=== PATIENT | female | born 1990 | race American Indian/Alaskan Native ===

== ENCOUNTER 2016-07-12 09:08 | Emergency (ER) | payer OTHER ==
--- NOTE | 2016-07-12 10:35 | Emergency Department Report ---
HPI - General Chief Complaint: Sore Throat Time Seen by Provider: 07/12/16 10:24 - HPI HPI: 26-year-old female presents today with intermittent fever, chills 3 days. Positive for neck swelling. Denies past medical history. Denies history of similar symptoms. 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 Denies sore throat, painful swallowing, cough or cold symptoms. Denies trying any medication for symptomatic relief. Denies difficulty in breathing, difficulty in swallowing, nausea, vomiting, chest pain, shortness of breath, abdominal pain. ED Past Medical Hx - Past Medical History Previous Medical History?: No - Surgical History Past Surgical History?: No - Social History Smoking Status: Never Smoker Substance Use Type: Non Opiate Pain - Medications Home Medications: Home Medications Medication Instructions Recorded Confirmed Last Taken Type Ibuprofen [Motrin 600 MG tab] 600 mg PO Q8H PRN #30 tablet 07/12/16 Unknown Rx ED Review of Systems ROS: Stated complaint: LUMP LT SIDE OF NECK/FEVER/CHILLS Other details as noted in HPI Constitutional: chills, fever Eyes: denies: eye pain ENT: denies: ear pain, throat pain, congestion Respiratory: denies: cough, shortness of breath, wheezing Cardiovascular: denies: chest pain, palpitations Endocrine: no symptoms reported Gastrointestinal: denies: abdominal pain, nausea, vomiting Skin: denies: rash Neurological: denies: headache, weakness Physical Exam - Physical Exam Vital Signs: Vital Signs 07/12/16 09:17 Temperature 100.5 F H Pulse Rate 90 Respiratory 20 Rate Blood Pressure 148/94 O2 Sat by Pulse 100 Oximetry Physical Exam: GENERAL: The patient is well-developed and well-nourished. Patient is in NAD. HEAD: Normocephalic. Atraumatic. EYES: PERRL. EARS: External auditory canals and tympanic membranes clear; hearing grossly intact. NOSE: Normal nasal mucosa with no nasal discharge. THROAT: Erythematous, tonsillomegaly with tonsillar exudates. NECK: Positive for bilateral anterior cervical lymphadenopathy. CHEST/LUNGS: Clear to auscultation throughout. HEART/CARDIOVASCULAR: Regular rate and rhythm. ABDOMEN: Abdomen is soft, nontender. No guarding or rebound tenderness. EXTREMITIES: Peripheral pulses intact. Capillary refill less than 2 seconds. NEURO: Alert and oriented x 3. Normal gait. ED Course Vital Signs 07/12/16 09:17 Temperature 100.5 F H Pulse Rate 90 Respiratory 20 Rate Blood Pressure 148/94 O2 Sat by Pulse 100 Oximetry ED Medical Decision Making - Lab Data Vital Signs 07/12/16 09:17 Temperature 100.5 F H Pulse Rate 90 Respiratory 20 Rate Blood Pressure 148/94 O2 Sat by Pulse 100 Oximetry - Medical Decision Making 26-year-old female presents today with fever and anterior cervical lymphadenopathy. Her rapid strep test is negative. Her mono test is negative. Patient is in no acute distress at this time. She will be discharged home and is encouraged to follow up with a primary care provider. She will be sent home on ibuprofen and is encouraged to return to the emergency room for any worsening symptoms. Critical care attestation.: If time is entered above; I have spent that time in minutes in the direct care of this critically ill patient, excluding procedure time. ED Disposition Clinical Impression: Pharyngitis Qualifiers: Pharyngitis/tonsillitis etiology: unspecified etiology Qualified Code(s): J02.9 - Acute pharyngitis, unspecified Disposition: DISCHARGED TO HOME OR SELFCARE Is pt being admited?: No Does the pt Need Aspirin: No Condition: Stable Instructions: Pharyngitis (ED), Lymphadenopathy (ED) Additional Instructions: Follow up with her primary care provider. Return to the emergency department if symptoms worsen. Prescriptions: Ibuprofen [Motrin 600 MG tab] 600 mg PO Q8H PRN #30 tablet PRN Reason: Pain Referrals: PRIMARY CARE [Primary Care Provider] - 3-5 Days [facility] [Outside] - 3-5 Days Forms: Work/School Release Form(ED) Time of Disposition: 13:11
[2016-07-12 13:20] VITALS: BP 133/92
== END 2016-07-12 13:25 | disposition home or self-care (01) ==
LOC: ED 09:08
DX: J02.9 Acute pharyngitis, unspecified (principal); R22.1 Localized swelling, mass and lump, neck
CPT/HCPCS: 36415; 86308; 87116; 87430; 99283